=== PATIENT | male | born 1995 | race African-American/Black ===

== ENCOUNTER 2018-02-25 12:27 | Emergency (ER) | payer OTHER ==
[~2018-02-25] VITALS: Ht 188 cm; Wt 88.5 kg
[2018-02-25 12:36] VITALS: BP 155/64
[2018-02-25] MEDS ORDERED: ALBUTEROL SULFATE 2.5 MG/3 ML NEBU. NEB ONE (13:15)
--- NOTE | 2018-02-25 13:29 | RAD ---
AP and Lateral Views of the Chest 02/25/2018 1:00 PM Indication: LT SIDED CHEST PAIN X4 DAYS Comparison: None Findings: There is no focal consolidation or infiltrate identified. The cardiomediastinal silhouette is within normal limits. There is no evidence of pneumothorax or pleural effusion. No acute osseous abnormalities are identified. Impression: No evidence of acute cardiopulmonary process. Electronically signed by: Dc Trujillo MD (02/25/2018 1:26 PM) [id number]
[2018-02-25] MEDS ORDERED: PROAIR HFA8.5 GM INH (14:00)
[2018-02-25] MEDS ORDERED: GUAI12003 PO (14:00)
--- NOTE | 2018-02-25 14:00 | PHYS DOC ---
Past Medical History Past Medical History: No Pertinent History Past Surgical History: No Surgical History Alcohol Use: None Drug Use: None Adult General Chief Complaint Chief Complaint: Congestion HPI HPI Patient is a 22 year old male presents to the emergency room with complaints of chest congestion, nasal congestion, and a productive cough for the last 4 days. He states that his left ribs hurt when he coughs. The cough is productive with dark green mucus produced. He reports having a fever up to 102 this morning , frequent sneezing, runny nose with clear to green drainage, mild shortness of breath and some wheezing. Patient denies any abdominal pain, sore throat, nausea , vomiting, or diarrhea. Review of Systems Review of Systems Constitutional: Denies chills, reports fever up to 102 this morning Eyes: Denies change in visual acuity, redness, or eye pain [] HENT: Denies ear pain or sore throat, reports nasal congestion and runny nose Respiratory: Reports productive cough, wheezing, and shortness of breath; complains of intermittent left rib pain with deep breath and coughing [] Cardiovascular: No additional information not addressed in HPI [] GI: Denies abdominal pain, nausea, vomiting, or diarrhea [] Musculoskeletal: Denies back pain or joint pain [] Integument: Denies rash or skin lesions [] Neurologic: Denies headache, focal weakness or sensory changes [] All other systems were reviewed and found to be within normal limits, except as documented in this note. Current Medications Current Medications Current Medications Medications (Trade) Dose Ordered Sig/Bonita Start Time Stop Time Status Last Admin Dose Admin Albuterol Sulfate (Ventolin Neb Soln) 2.5 mg 1X ONCE 02/25/18 13:15 02/25/18 13:16 DC 02/25/18 13:13 2.5 MG Allergies Allergies Allergies Coded Allergies Type Severity Reaction Last Updated Verified No Known Drug Allergies 02/25/18 No Physical Exam Physical Exam Constitutional: Well developed, well nourished, no acute distress, non-toxic appearance. [] HENT: Normocephalic, atraumatic, bilateral external ears normal, oropharynx moist, no oral exudates, nose normal. [] Eyes: normal Neck: Normal range of motion, no tenderness, supple, no stridor. [] Cardiovascular:Heart rate regular rhythm, no murmur [] Lungs & Thorax: Bilateral breath sounds clear to auscultation, diminished posterior bilaterally [] Skin: Warm, dry, no erythema, no rash. [] Extremities: No cyanosis, no clubbing, ROM intact, no edema. [] Neurologic: Alert and oriented X 3, normal motor function, normal sensory function, no focal deficits noted. [] Psychologic: Affect normal, judgement normal, mood normal. [] Current Patient Data Vital Signs Vital Signs Date Time Temp Pulse Resp B/P (MAP) Pulse Ox O2 Delivery O2 Flow Rate FiO2 02/25/18 13:13 96 Room Air 02/25/18 12:36 98.6 100 20 155/64 (94) 98.6 EKG EKG [] Radiology/Procedures Radiology/Procedures PROCEDURE: CHEST PA & LATERAL AP and Lateral Views of the Chest 02/25/2018 1:00 PM Indication: LT SIDED CHEST PAIN X4 DAYS Comparison: None Findings: There is no focal consolidation or infiltrate identified. The cardiomediastinal silhouette is within normal limits. There is no evidence of pneumothorax or pleural effusion. No acute osseous abnormalities are identified. Impression: No evidence of acute cardiopulmonary process. [] Course & Med Decision Making Course & Med Decision Making Pertinent Labs and Imaging studies reviewed. (See chart for details) Diagnoses bronchitis and upper respiratory infection. Chest x-ray is negative. Patient was given a breathing treatment in the emergency department, he reported feeling better and breathing better after the breathing treatment. Prescription for Pro Air inhaler and Mucinex written. Patient verbalized an understanding of home care, medications, follow-up, and return to ED instructions and was in agreement with the plan of care.[] Dragon Disclaimer Dragon Disclaimer This electronic medical record was generated, in whole or in part, using a voice recognition dictation system. Departure Departure Impression: Primary Impression: Bronchitis Additional Impression: Upper respiratory infection Disposition: HOME, SELF-CARE Condition: STABLE Referrals: HARPREET WONG (PCP) Patient Instructions: Bronchitis, [id number] Additional Instructions: Fill prescription(s) and use as directed. OTC Flonase 2 sprays each nare daily. Tylenol or ibuprofen prn pain/fever. Increase clear fluids. Avoid triggers such as smoke, fragrance, dust, and pollen. Follow-up with your primary care doctor next week. Return to the ER if symptoms worsen Scripts Guaifenesin (MUCINEX) 1,200 Mg Tbmp.12hr 1 TAB PO BID for 7 Days, #14 TAB 0 Refills Prov: JIM GAY [employer] REBUILDER 02/25/18 Albuterol Sulfate (PROAIR HFA INHALER) 8.5 Gm Hfa.aer.ad 1-2 PUFF INH PRN Q6HRS PRN for SHORTNESS OF BREATH for 14 Days, #1 INHALER 0 Refills Prov: JIM GAY [employer] REBUIL[employer] 02/25/18 Problem Qualifiers Additional Impression: Upper respiratory infection URI type: unspecified URI Qualified Codes: J06.9 - Acute upper respiratory infection, unspecified JIM GAY [employer] REBUILDER Feb 25, 2018 14:00
== END 2018-02-25 14:15 | disposition home or self-care (01) ==
LOC: ER 12:27
DX: J40 Bronchitis, not specified as acute or chronic (principal); J06.9 Acute upper respiratory infection, unspecified
CPT/HCPCS: 71046; 94640; 99284; J7613